=== PATIENT | male | born 1980 | race Caucasian/White ===

== ENCOUNTER 2018-04-19 23:12 | Emergency (ER) | payer MEDICARE ==
[~2018-04-19] VITALS: Ht 177.8 cm; Wt 84.4 kg
[2018-04-19 23:31] VITALS: BP 127/81
[2018-04-19] MEDS ORDERED: NS 1000ML 1,000 ML IV STA (23:52)
[2018-04-19] MEDS ORDERED: ZOFRAN IV STA (23:52)
[2018-04-19] MEDS ORDERED: TORADOL IV STA (23:52)
[2018-04-20] VITALS: BP 126/87
[2018-04-20 00:12] LABS: APPEARANCE,URINE CLEAR (CLEAR); BILIRUBIN,URINE NEGATIVE (NEGATIVE); UA COLOR DARK YELLOW (YELLOW)
[2018-04-20 00:13] LABS: UROBILINOGEN,URINE NEGATIVE (NEGATIVE)
--- NOTE | 2018-04-20 00:16 | ER.PDOC ---
General Chief Complaint: Abdomen Pain Stated Complaint: POSS GALLBLADDER STONES Time seen by MD: 00:03 Source: patient Exam Limitations: no limitations History of Present Illness Initial Comments 37 yo M recently diagnosed with gallstones p/w worseing abdominal pain. Also c/ o associated nausea. Denies fevers/chills. Tolerating oral intake however patient states pain is worsened by food/drink. Timing/Duration: 1 week, constant, getting worse Severity/Quality: severe, sharpness, stabbing Radiation: no radiation Associated Symptoms: nausea/vomiting Exacerbated by: food Relieved By: nothing Allergies: Coded Allergies: Penicillins (Verified Allergy, Severe, Anaphylaxis Shock, 04/19/18) amoxicillin (Verified Allergy, Severe, Anaphylaxis Shock, 04/19/18) meperidine (Verified Allergy, Intermediate, Headache, 04/19/18) tramadol (Verified Allergy, Intermediate, Headache, 04/19/18) latex (Verified Allergy, Mild, Rash, 04/19/18) Vital Signs First Vital Signs Date Time Temp Pulse Resp B/P (MAP) Pulse Ox O2 Delivery O2 Flow Rate FiO2 04/19/18 23:24 98.2 87 18 04/19/18 23:24 98 Room Air 04/19/18 23:31 127/81 (96) Last Vital Signs Date Time Temp Pulse Resp B/P (MAP) Pulse Ox O2 Delivery O2 Flow Rate FiO2 04/19/18 23:31 98.2 87 18 127/81 (96) 98 Room Air Past Medical History Medical History: other (gallstones) Surgical History: back, other Family History Significant Family History: no pertinent family hx Social History Smoking: less than 1 pack/day Alcohol Use: none Drug Use: marijuana Reviewed Nursing Reviewed: Vital Signs, Abn. Noted, Nursing Assessment Constitutional: no symptoms reported EENTM: no symptoms reported Respiratory: no symptoms reported Cardiovascular: no symptoms reported Gastrointestinal: see HPI Genitourinary: no symptoms reported Musculoskeletal: no symptoms reported Skin: no symptoms reported Psychiatric/Neurological: no symptoms reported Endocrine: no symptoms reported Hematologic/Lymphatic: no symptoms reported All Other Systems: Reviewed and Negative Physical Exam General Appearance: No Apparent Distress, WD/WN HEENT: PERRL/EOMI, Normal ENT Inspection Neck: Non-Tender, Full Range of Motion Respiratory: chest non-tender, lungs clear, normal breath sounds Cardiovascular: Normal Peripheral Pulses, Regular Rate, Rhythm Gastrointestinal: Tenderness (RUQ) Back: Normal Inspection, No CVA Tenderness Extremities: Normal Range of Motion, Non-Tender, Normal Inspection Results/Orders Results/Orders [facility] [place] [address] DIAGNOSTIC IMAGING REPORT STATUS: Signed PATIENT NAME: PRASHANT FIGUEROA MR#: [id number] : 1980 LOCATION: ER ROOM#: BED: SEX: M AGE: 37 SERVICE DATE: 04/19/182311 ORDERING PHYSICIAN: LUCERO GRIFFITH MD RAD#: [id number] ACCESSION NUMBER(s): [id number] PROCEDURE: US GALLBLADDER EXAM DATE: 04/19/182356 cc: C:\Program Files (x86)\[facility]; REGINE TEJADA MD; LUCERO GRIFFITH MD / CC: C:\Program Files (x86)\[facility]; REGINE TEJADA MD; LUCERO GRIFFITH MD PROCEDURE:US ABDOMEN LIMITED (SINGLE ORGAN - QUAD) COMPARISON:None. INDICATIONS:RUQ pain TECHNIQUE:High resolution sonographic examination was performed of the abdomen. FINDINGS: RIGHT KIDNEY:11.20 cm x 5.50 cm x 5.13 cm, 165.56 ml GALL BLADDER WALL:2.48 mm CBD:3.70 mm PANCREAS:Limited view the head neck are unremarkable. Body and tail are obscured by bowel gas. LIVER:Normal size and echogenicity. No significant masses. Main portal vein is patent with hepatopetal flow. BILIARY:The gallbladder is contracted with multiple gallstones. RIGHT KIDNEY:Negative. OTHER:Negative. CONCLUSION: Cholelithiasis without evidence of biliary obstruction. Dictated by: Reyes Tejada MD on 04/20/2018 at 01:36 AM Progress Progress Patient presents with worsening abdominal pain, recently diagnosed with biliary colic and advised to return if his pain worsened, non-toxic, afebrile, abdominal tenderness (RUQ) on exam. IVF, labs and repeat US to assess for cholecystitis, dispo pending imaging. EKG/XRAY/CT/US Ultrasound: normal Course Vitals & review Data Vital Sign - Last 24 Hours 04/19/18 04/19/18 04/19/18 23:24 23:24 23:31 Temp 98.2 98.2 98.2 Pulse 87 87 87 Resp 18 B/P (MAP) 127/81 (96) Pulse Ox 98 98 O2 Delivery Room Air Room Air Departure Time of Disposition: 03:06 Disposition: 01 HOME, SELF-CARE Impression: Primary Impression: Biliary colic Condition: Stable Patient Instructions: Biliary Colic, Cholelithiasis, [id number] Referrals: PCP,UNKNOWN (PCP) PRIMARY CARE PROVIDER Additional Instructions: Your labs and ultrasound show gallstones but no evidence of blockage or infection at this time. Take pain medications, avoid spicy and greasy foods and follow up with a general surgeon to schedule your gallbladder removal surgery. Return to the ER for fevers, inability to eat/drink or any other concern that you may be having a medical emergency. Duration or Time Spent with Pa: 40 LUCERO GRIFFITH MD Apr 20, 2018 00:16
[2018-04-20 00:17] LABS: BASOPHIL # 0.1 10^3/uL (0.0-0.1); BASOPHIL % 0.7 % (0.0-0.2); EOSINOPHIL # 0.4 10^3/uL (0.0-0.2); HEMOGLOBIN 14.6 g/dL (13.9-16.3); LYMPHOCYTES % 17.1 % (24.0-44.0); MEAN CELL HGB 30.7 pg (26-34); MEAN CELL HGB CONCENTRATION 33.7 g/dL (33-37); MEAN CORP VOLUME 91.2 fL (78-100); MEAN PLATELET VOLUME 9.6 fL (7.8-11.0); MONOCYTES % 8.6 % (5.0-12.0); NEUTROPHIL # 8.4 10^3/uL (1.8-7.7); NEUTROPHILS % 70.3 % (41.0-85.0); RED CELL DISTRIBUTION WIDTH 15.1 % (11.5-14.5); WHITE BLOOD CELL 11.9 10^3/uL (4.5-11.0)
[2018-04-20] MEDS ORDERED: NS 1000ML 1,000 ML ONE (00:19)
[2018-04-20] MEDS ORDERED: TORADOL ONE ×2 (00:19→00:20)
[2018-04-20] MEDS ORDERED: ZOFRAN ONE (00:19)
--- NOTE | 2018-04-20 00:29 | NUR ---
ULTRASOUND TO U/S VIA WC ACCOMPANIED BY HOWARD WEAVER
[2018-04-20 00:35] LABS: CALCIUM 9.2 mg/dL (8.4-10.5); CARBON DIOXIDE 28.4 mmol/L (20.0-32)
--- NOTE | 2018-04-20 01:10 | NUR ---
U/S Patient returns via W/C.
--- NOTE | 2018-04-20 01:40 | DIREP ---
PROCEDURE:US ABDOMEN LIMITED (SINGLE ORGAN - QUAD) COMPARISON:None. INDICATIONS:RUQ pain TECHNIQUE:High resolution sonographic examination was performed of the abdomen. FINDINGS: RIGHT KIDNEY:11.20 cm x 5.50 cm x 5.13 cm, 165.56 ml GALL BLADDER WALL:2.48 mm CBD:3.70 mm PANCREAS:Limited view the head neck are unremarkable. Body and tail are obscured by bowel gas. LIVER:Normal size and echogenicity. No significant masses. Main portal vein is patent with hepatopetal flow. BILIARY:The gallbladder is contracted with multiple gallstones. RIGHT KIDNEY:Negative. OTHER:Negative. CONCLUSION: Cholelithiasis without evidence of biliary obstruction. Dictated by: Reyes Augustine MD on 04/20/2018 at 01:36 AM
[2018-04-20 01:45] VITALS: BP 125/86
--- NOTE | 2018-04-20 02:30 | NUR ---
VITALS PATIENT REFUSED VITALS AT THIS TIME
[2018-04-20] MEDS ORDERED: SUBLIMAZE IV STA (03:21)
[2018-04-20] MEDS ORDERED: SUBLIMAZE ONE (03:29)
--- NOTE | 2018-04-20 03:30 | NUR ---
VITALS PATIENT REFUSED VITALS AT THIS TIME
[2018-04-20] MEDS ORDERED: ULTRAM ONE (03:32)
[2018-04-20] MEDS ORDERED: TYLENOL PO STA (03:36)
[2018-04-20] MEDS ORDERED: TYLENOL PO ONE (03:36)
== END 2018-04-20 03:50 | disposition home or self-care (01) ==
LOC: ER 23:12
DX: K80.50 Calculus of bile duct without cholangitis or cholecystitis without obstruction (principal); R11.2 Nausea with vomiting, unspecified; F17.200 Nicotine dependence, unspecified, uncomplicated; F12.10 Cannabis abuse, uncomplicated; Z88.0 Allergy status to penicillin; Z88.1 Allergy status to other antibiotic agents; Z91.040 Latex allergy status; Z88.8 Allergy status to other drugs, medicaments and biological substances
CPT/HCPCS: 36415; 76705; 80053; 81002; 82248; 83690; 85025; 85610; 85730; 96361; 96374; 96375; 99285; J1885 ×2; J2405; J3010; J7030